=== PATIENT | female | born 1940 | race Caucasian/White ===

== ENCOUNTER 2021-03-24 17:19 | Emergency (ER) | payer MEDICARE ==
[~2021-03-24] VITALS: Ht 152.4 cm; Wt 47.6 kg
[2021-03-24 17:28] VITALS: BP_SYST 140
--- NOTE | 2021-03-24 17:28 | NUR ---
Patient triaged and placed in ER hallway. VSS and patient appears in no acute distress at this time. Accompanied by [facility] transport, awaiting available bed, and MD notified of need for MSE.
[2021-03-24 19:13] LABS: BASOPHILS # (AUTO) 0.1 K/uL (0.0-0.2); BASOPHILS % (AUTO) 0.6 % (0.0-2.0); EOSINOPHILS % (AUTO) 0.1 % (0.0-4.0); HEMATOCRIT 39.9 % (36-48); HEMOGLOBIN 13.2 g/dL (12.0-16.0); LYMPHOCYTES # (AUTO) 0.4 K/uL (1.0-5.5); LYMPHOCYTES % (AUTO) 2.7 % (20.5-51.5); MEAN CORPUSCULAR HEMOGLOBIN 30 pg (27-31); MEAN CORPUSCULAR HGB CONC 33 % (32-36); MEAN CORPUSCULAR VOLUME 91 fL (79.0-98.0); MONOCYTES # (AUTO) 0.5 K/uL (0.0-1.0); MONOCYTES % (AUTO) 3.1 % (1.7-9.3); NEUTROPHILS # (AUTO) 13.5 K/uL (1.8-7.7); NEUTROPHILS % (AUTO) 93.5 % (40.0-70.0); PLATELET COUNT (AUTO) 240 K/uL (130-430); RED BLOOD CELL COUNT(AUTO) 4.41 MIL/uL (4.2-6.2); RED CELL DISTRIBUTION WIDTH 13.6 % (9.0-15.0); WHITE BLOOD COUNT (AUTO) 14.4 K/uL (4.8-10.8)
--- NOTE | 2021-03-24 19:44 | NUR ---
Patient to ER bed 05 to gown for evaluation. Side rails up.
[2021-03-24 19:48] LABS: ANION GAP 5 (5-15); CALCIUM 8.8 mg/dL (8.4-11.0); CHLORIDE 105 mmol/L (98-107); CREATININE 0.97 mg/dL (0.55-1.30); GLUCOSE 184 mg/dL (70-99); POTASSIUM 5.1 mmol/L (3.5-5.1); SODIUM SERUM 141 mmol/L (136-145); UREA NITROGEN, BLOOD 20 mg/dL (8-21)
--- NOTE | 2021-03-24 19:50 | NUR ---
Patient brought in S AOx2 initial complaint was acute left leg pain with difficulty walking and 3 episodes of emesis. Patient denies any leg pain. Patient has full range of motion. Patient is a poor historian. Denies any pain at this time
[2021-03-24 19:53] LABS: ALANINE AMINOTRANSFERASE 39 U/L (12-78); ALBUMIN 2.9 g/dL (3.4-4.8); ASPARTATE AMINOTRANSFERASE 24 U/L (10-37); LIPASE 141 U/L (73-393); TOTAL BILIRUBIN 0.2 mg/dL (0.0-1.0)
--- NOTE | 2021-03-24 20:06 | NUR ---
# 16 FR In and Out catheter with use of sterile technique. Immediate return of 100ml clear yellow urine noted. Urine sample collected and sent to lab. Pt tolerated procedure well Patient unable to toilet self.
[2021-03-24 20:15] LABS: BILIRUBIN,URINE NEGATIVE (NEGATIVE); BLOOD, URINE NEGATIVE (NEGATIVE); CLARITY/URINE CLEAR (CLEAR); COLOR,URINE YELLOW (YELLOW); GLUCOSE,URINE TRACE (NEGATIVE); KETONES,URINE NEGATIVE (NEGATIVE); LEUKOCYTE ESTERASE ,URINE NEGATIVE (NEGATIVE); NITRITE, URINE NEGATIVE (NEGATIVE); PROTEIN URINE NEGATIVE (NEGATIVE); UROBILINOGEN,URINE 0.2 (0.2-1.0)
--- NOTE | 2021-03-24 20:30 | NUR ---
Son at bedside with Dr. Ray. Patient signed consent of CT Abdomen/Pelvis with contrast
--- NOTE | 2021-03-24 20:42 | NUR ---
# 18 gauge angiocath placed to RAC. Use of asceptic technique. Opsite placed over site. Blood return noted. Flushed with 10 cc of normal saline. No evidence of infiltration noted. Patient tolerated well.
--- NOTE | 2021-03-24 20:50 | NUR ---
Patient off unit with CT Scan with [employer]
--- NOTE | 2021-03-24 21:00 | NUR ---
Patient returned from CT Scan in stable condition.
--- NOTE | 2021-03-24 22:26 | NUR ---
radiology at bedside for chest xray
[2021-03-24] MEDS ORDERED: BENZ-16 PO (22:47)
[2021-03-24] MEDS ORDERED: ZIT250 PO (22:47)
[2021-03-24] MEDS: cefTRIAXone 1 GM VIAL IV ONE (23:03)
[2021-03-24] MEDS: AZITHROMYCIN 250 MG TABLET PO ONE (23:03)
[2021-03-24 23:14] VITALS: BP_SYST 126
--- NOTE | 2021-03-24 23:14 | NUR ---
Patient given written and verbal discharge instructions and verbalizes understanding. ER MD discussed with patient the results and treatment provided. Patient in stable condition. ID arm band removed. IV catheter removed intact and dressing applied, no active bleeding. Rx of tessalon perles and azithromycin given. Patient educated on pain management and to follow up with PMD. Pain Scale 0/10 Opportunity for questions provided and answered. Medication side effect fact sheet provided.
== END 2021-03-24 23:14 | disposition home or self-care (01) ==
LOC: SED 17:19
DX: R11.2 Nausea with vomiting, unspecified (principal); R05.3 Chronic cough; R91.1 Solitary pulmonary nodule; M17.11 Unilateral primary osteoarthritis, right knee; Z79.899 Other long term (current) drug therapy
CPT/HCPCS: 36415; 71045; 73560; 74177; 76376; 80053; 81003; 83690; 85025; 96374; 99285; J0696; Q0144; Q9967